=== PATIENT | female | born 1945 | race Caucasian/White ===

== ENCOUNTER 2016-10-26 23:01 | Emergency (ER) | payer OTHER, MEDICARE ==
[~2016-10-26] VITALS: Ht 160 cm; Wt 63.3 kg
[~2016-10-26 23:01] MED LIST: DILTIAZEM 24HR240 MG PO; DILTIAZEM ER180 M1 PO; KEFLEX500 MG PO; SYNTHROID75 MCG PO; [UNRECOGNIZED DRUG - OTHER] MC
[2016-10-27 00:02] LABS: HEMATOCRIT 43.8 % (36.0-46.0); MCHC 34.9 G/DL (30.0-36.0); MCV 88.8 FL (83-99); MEAN PLAT.VOLUME 11.2 uM^3 (9.5-12.4); PLATELET COUNT 359 K/uL (156-360); RBC DIS.WIDTH-CV 13.2 % (11.8-14.6); RBC DIS.WIDTH-SD 41.9 % (39-53); RED BLOOD COUNT 4.93 M/uL (3.80-5.20); WHITE BLOOD COUNT 9.7 K/uL (4.1-10.2)
[2016-10-27 00:39] LABS: ADD MIUA? YES; BILIRUBIN NEGATIVE; BLOOD NEGATIVE; COLOR YELLOW ((YELLOW)); GLUCOSE (STRIP) NEGATIVE; KETONES NEGATIVE; LEUKOCYTES TRACE; NITRITE NEGATIVE; PROTEIN (STRIP) NEGATIVE; SPECIFIC GRAVITY 1.013 (1.000-1.030); UROBILINOGEN 0.2 MG/DL (0.2-1.0)
[2016-10-27 00:48] LABS: CHLORIDE 111 mEq/L (99-109); POTASSIUM 3.8 mEq/L (3.7-5.4); SODIUM 145 mEq/L (136-147)
[2016-10-27 00:50] LABS: GLUCOSE 129 mg/dL (70-99)
[2016-10-27 00:51] LABS: ANION GAP 10 MEQ/L (2-14)
[2016-10-27 00:52] LABS: TOTAL BILIRUBIN 0.5 mg/dL (0.0-1.0)
[2016-10-27 00:54] LABS: EPITHELIAL CELLS RARE /HPF; RED BLOOD CELLS NONE SEEN /HPF (0-5); WHITE BLOOD CELLS 0-5 /HPF (0-5)
[2016-10-27 00:54] LABS: ALKALINE PHOSPHATASE 82 IU/L (3-129); GFR ESTIMATE (CALCULATED) > 59 mL/min/
[2016-10-27 00:55] LABS: UREA NITROGEN (BUN) 15 mg/dL (9-23)
[2016-10-27 00:55] LABS: BACTERIA RARE /HPF; CASTS NONE SEEN /LPF; CRYSTALS NONE SEEN; MUCUS NONE SEEN /LPF; UCUL ADDED? NO
[2016-10-27 00:57] LABS: LIPASE 29 U/L (1.0-51.0)
[2016-10-27] MEDS ORDERED: MIRALAX255 GM PO (02:02)
[2016-10-27 02:18] VITALS: BP 167/87
== END 2016-10-27 02:19 | disposition home or self-care (01) ==
LOC: EME 23:01
PROVIDERS: Emergency Medicine
DX: K59.00 Constipation, unspecified (principal); R10.12 Left upper quadrant pain; R10.32 Left lower quadrant pain; E03.9 Hypothyroidism, unspecified; I10 Essential (primary) hypertension
CPT/HCPCS: 74177; 80053; 81003; 83690; 85027; 99281; 99285; J7030

== ENCOUNTER 2017-05-13 16:07 | Observation (INO) | payer OTHER, MEDICARE ==
[~2017-05-13] VITALS: Ht 157.5 cm; Wt 58.8 kg
[~2017-05-13 16:07] MED LIST changes: +MIRALAX255 GM PO
[2017-05-13 16:37] LABS: HEMATOCRIT 45.5 % (36.0-46.0); MCH 31.5 PG (29.0-34.0); MCHC 35.2 G/DL (30.0-36.0); MCV 89.6 FL (83-99); PLATELET COUNT 256 K/uL (156-360); RBC DIS.WIDTH-CV 12.4 % (11.8-14.6); RBC DIS.WIDTH-SD 40.8 % (39-53); RED BLOOD COUNT 5.08 M/uL (3.80-5.20)
[2017-05-13 17:09] LABS: CHLORIDE 101 mEq/L (99-109); POTASSIUM 3.6 mEq/L (3.7-5.4); SODIUM 138 mEq/L (136-147)
[2017-05-13 17:11] LABS: GLUCOSE 108 mg/dL (70-99)
[2017-05-13 17:13] LABS: ANION GAP 14 MEQ/L (2-14)
[2017-05-13 17:15] LABS: ALKALINE PHOSPHATASE 92 IU/L (3-129); GFR ESTIMATE (CALCULATED) > 59 mL/min/
[2017-05-13 17:16] LABS: UREA NITROGEN (BUN) 17 mg/dL (9-23)
[2017-05-13 17:19] LABS: LIPASE 19 U/L (1.0-51.0)
[2017-05-13 20:11] LABS: ADD MIUA? NO; BILIRUBIN NEGATIVE; BLOOD NEGATIVE; COLOR STRAW ((YELLOW)); GLUCOSE (STRIP) NEGATIVE; KETONES 5; LEUKOCYTES NEGATIVE; NITRITE NEGATIVE; PROTEIN (STRIP) NEGATIVE; SPECIFIC GRAVITY 1.006 (1.000-1.030); UCUL ADDED? NO; UROBILINOGEN 0.2 MG/DL (0.2-1.0)
[2017-05-13] MEDS ORDERED: CYANOCOBALAM1000 MCG PO (21:40)
[2017-05-13] MEDS ORDERED: VITAMIN D2000 UNI1 PO (21:40)
[2017-05-14 00:02] VITALS: BP 137/79
[2017-05-14 03:11] VITALS: BP 132/66
[2017-05-14 06:46] LABS: ALKALINE PHOSPHATASE 57 IU/L (3-129); ANION GAP 6 MEQ/L (2-14); CHLORIDE 107 MEQ/L (99-109); GFR ESTIMATE (CALCULATED) > 59 mL/min/; POTASSIUM 3.8 MEQ/L (3.7-5.4); SAMPLE HEMOLYSIS CHECK 0; SAMPLE ICTERIC CHECK 0; SAMPLE LIPEMIA CHECK 0; SODIUM 139 MEQ/L (136-147); TOTAL BILIRUBIN 0.8 MG/DL (0.0-1.0); UREA NITROGEN (BUN) 13 mg/dL (9-23)
[2017-05-14 06:47] LABS: HEMATOCRIT 38.5 % (36.0-46.0); MCH 31.4 PG (29.0-34.0); MCHC 33.8 G/DL (30.0-36.0); PLATELET COUNT 216 K/uL (156-360); RBC DIS.WIDTH-SD 44.4 % (39-53); RED BLOOD COUNT 4.14 M/uL (3.80-5.20); WHITE BLOOD COUNT 8.3 K/uL (4.1-10.2)
[2017-05-14 06:48] LABS: GLUCOSE 69 mg/dL (70-99)
[2017-05-14 07:55] VITALS: BP 168/79
[2017-05-14 12:03] LABS: C DIFF TOXIN ND (NEGATIVE)
[2017-05-14 12:13] VITALS: BP 134/71
[2017-05-14 12:21] LABS: INTERNAL CONTROL VALID? YES
== END 2017-05-14 18:09 | disposition home or self-care (01) ==
LOC: EME 16:07 → EDOF 22:31 → 5WEST 22:31 → ENRESERV 22:33 → 5WEST 23:34
PROVIDERS: Internal Medicine
DX: K52.9 Noninfective gastroenteritis and colitis, unspecified (principal); E87.6 Hypokalemia; I10 Essential (primary) hypertension; E03.9 Hypothyroidism, unspecified; Z87.19 Personal history of other diseases of the digestive system; Z85.048 Personal history of other malignant neoplasm of rectum, rectosigmoid junction, and anus; Z90.49 Acquired absence of other specified parts of digestive tract; Z90.710 Acquired absence of both cervix and uterus; Z88.0 Allergy status to penicillin; Z88.2 Allergy status to sulfonamides; Z88.1 Allergy status to other antibiotic agents; Z91.02 Food additives allergy status; Z88.8 Allergy status to other drugs, medicaments and biological substances; Z82.49 Family history of ischemic heart disease and other diseases of the circulatory system; Z83.3 Family history of diabetes mellitus
CPT/HCPCS: 74177; 80053; 81003; 83630; 83690; 85027; 87177; 87493; G0378; J1644; J1885; J2405; J3480; J7030; J7040; S0028